=== PATIENT | female | born 2000 | race Asian ===

== ENCOUNTER 2021-11-24 23:28 | Emergency (ER) | payer OTHER, SELFPAY ==
[2021-11-24 23:28] VITALS: BP 111/79; PULSE 77; RESP 16; TEMP 36.3; O2SAT 99; BMI 21.4
[2021-11-24 23:47] VITALS: BP 123/75; PULSE 79; RESP 13; O2SAT 100
--- NOTE | 2021-11-25 00:41 | EKG12_ITS ---
Test Reason : ELECTRIC SHOCK Blood Pressure : / mmHG Vent. Rate : 080 BPM Atrial Rate : 080 BPM P-R Int : 162 ms QRS Dur : 074 ms QT Int : 382 ms P-R-T Axes : 079 082 056 degrees QTc Int : 440 ms Normal sinus rhythm with sinus arrhythmia Normal ECG Confirmed by KOKI HOOVER, SHANNAN ([id number]), health editor LORENA SAMSON ([id number]) on 11/29/2021 9:00:32 AM Referred By: Confirmed By:DAVID TELLES MD
[2021-11-25 01:13] VITALS: PULSE 84; RESP 16; O2SAT 100
--- NOTE | 2021-11-25 01:25 | EX.ED.GENINJ ---
HPI History of Present Illness Chief Complaint: Burn Narrative Narrative: Patient is a 21-year-old female who states around 10 PM this evening she was working on remodeling her bathroom. She states that she thought the wires were and when she cut through it she was electrocuted in her right hand. She states this happened a few hours prior to arrival but since that time she has felt off and some irritation pain in her muscles. Secondary to this she presents for evaluation [facility] Home Medications methocarbamol 500 mg PO 4X/DAY PRN PRN 10 Days #40 tab 11/25/21 [Rx Last Taken Unknown] Allergy/AdvReac Type Severity Reaction Status Date / Time No Known Allergies Allergy Verified 11/24/21 23:30 Social History Smoking Status: Never smoker ROS ROS ED Constitutional Constitutional ED: Denies chills or fever(s) ENT ENT ED: Denies sore throat Cardiovascular Cardiovascular: Denies chest pain Respiratory/Chest Respiratory/Chest: Denies cough or dyspnea Gastrointestinal Gastrointestinal: Denies abdominal pain, diarrhea, nausea or vomiting Genitourinary Genitourinary ED: Denies dysuria Musculoskeletal Musculoskeletal: Reports myalgias Integumentary Denies rash Neurologic Neurologic: Denies headache(s) Hematologic/Lymphatic Hematologic/Lymphatic: Denies easy bleeding or easy bruising EXAM Physical Exam Const Vital Signs: 11/24/21 23:28 11/24/21 23:47 11/25/21 01:13 Temperature 97.4 F L Temperature Source Temporal Pulse Rate 77 79 84 Respiratory Rate 16 13 16 Blood Pressure 111/79 123/75 H Blood Pressure Mean 89 91 Pulse Ox 99 100 100 Oxygen Delivery Method Room Air Room Air Room Air 11/25/21 01:46 Temperature Temperature Source Pulse Rate 64 Respiratory Rate 16 Blood Pressure Blood Pressure Mean Pulse Ox 100 Oxygen Delivery Method Positive well nourished and well developed General Appearance ED: well developed HEENT Reports moist mucous membranes Eyes PERRL and EOMs intact bilaterally Neck supple Resp normal respiratory effort and clear to auscultation bilaterally Cardio regular rate and regular rhythm Rate: regular rate GI normal to inspection, nondistended, normoactive bowel sounds, non-tender, non-distended and no masses Auscultation: normoactive bowel sounds Palpation: soft Extremity normal to inspection and full ROM Neuro oriented x3 and CN's II-XII intact bilaterally Sensorium / Orientation: alert Psych mental status grossly normal Skin no rashes or lesions noted Skin Narrative: No overlying soft tissue changes to suggest trauma or infection or burn MDM MDM MDM Narrative Medical decision making narrative: Patient presented to the ER with stable vitals and reported brief electrocution through her right hand. She had been hours out from the reported exposure and on exam she had no signs of skin trauma. With the electrocution there is concern she could have a cardiac dysrhythmia but monitoring and EKG showed normal sinus rhythm. Therefore at this time as patient has stable vitals no signs of mclain and a normal heart rhythm I do not feel there is need for further work-up based on her report of electrocution and she is safe for discharge Discharge Plan Triage Chief Complaint: Burn ED Provider: Wilber Alexander Dx/Rx/DC Orders Clinical Impression: Electrical shock of hand Instructions: ED Electrical Injury Prescriptions: New methocarbamol 500 mg tablet 500 mg PO 4X/DAY PRN PRN (Reason: Muscle pain/spasm) 10 Days Qty: 40 RF: 0 Primary Care Provider: Care Physician,No Primary Referrals: Fast,Irene, DO [NON-STAFF] - 3-5 Days if not improving Disposition Disposition: Home, Self Care Discharge Date/Time: 11/25/21 01:48
[2021-11-25 01:46] VITALS: PULSE 64; RESP 16; O2SAT 100
== END 2021-11-25 01:48 | disposition home or self-care (01) ==
LOC: ED 11-25 01:42
PROVIDERS: Emergency Provider Emergency Medicine; Visit Provider Emergency Medicine
DX: T75.4XXA Electrocution, initial encounter (principal); Y92.002 Bathroom of unspecified non-institutional (private) residence as the place of occurrence of the external cause
CPT/HCPCS: 93005; 99282

== ENCOUNTER 2023-01-09 15:19 | Outpatient (CLI) | payer OTHER, SELFPAY ==
[2023-01-09 16:02] LABS: Absolute Lymphocyte Count 3.02 X10^3/uL (0.83-4.51); Absolute Neutrophil Count 4.9 X10^3/uL (2.0-7.7); Basophil# 0.04 X10^3/uL; Basophil% 0.5 % (0-1); Eosinophil# 0.03 X10^3/uL; Eosinophils% 0.4 % (0-5); Hemoglobin 13.7 g/dL (12.0-15.0); Lymphocyte # 3.02 X10^3/ul (0.83-4.51); Lymphocyte % 35.3 % (19-41); Mean Corp Hgb Conc 31.9 g/dL (32-36); Mean Corpuscular Hgb 29.4 pg (27.0-32.0); Mean Corpuscular Volume 92.3 fL (81-99); Mean Platelet Vol. 10.3 fl (6.2-12.0); Monocyte% 5.8 % (0-10); NRBC Flagged by Analyzer 0 % (0-5); Neutrophil # 4.94 X10^3/uL (2.7-7.7); Neutrophil % 57.6 % (47-70); Platelet Count 280 K/mm3 (150-450); RBC Distribution Width CV 12.9 % (11.6-14.6); RBC Distribution Width SD 43.4 fl (35.1-43.9); Red Blood Count 4.66 M/mm3 (4.2-5.4); White Blood Count 8.6 K/mm3 (4.4-11.0)
[2023-01-09 16:48] LABS: hCG Titer Quant., Serum < 1 mIU/mL (1-3)
[2023-01-09 16:52] LABS: Estradiol 169.7 pg/mL; Follicle Stimulating Hormone 2.2 mIU/mL; Luteinizing Hormone 4.6 mIU/mL; Prolactin 31.1 ng/mL; T4 Free Direct 0.97 ng/dL (0.76-1.46); Thyroid Stim Hormone (TSH) 1.36 uIU/mL (0.358-3.74)
[2023-01-12 13:08] LABS: Testosterone Free 1.9 pg/mL (0.0-4.2)
[2023-01-16 16:58] LABS: HPV Reflexed? NOT INDICATED
== END 2023-01-09 23:59 | disposition home or self-care (01) ==
LOC: WOBLAB 15:22
PROVIDERS: Visit Provider Student in an Organized Health Care Education/Training Program
DX: Z12.4 Encounter for screening for malignant neoplasm of cervix (principal); N93.9 Abnormal uterine and vaginal bleeding, unspecified
CPT/HCPCS: 36415; 82670; 83001; 83002; 84146; 84402; 84439; 84443; 84702; 85025; 88175; G0145